=== PATIENT | female | born 1960 | race American Indian/Alaskan Native ===

== ENCOUNTER 2025-02-11 10:53 | Outpatient (AMB) | payer MEDICARE, MEDICAID, SELFPAY ==
--- NOTE | 2025-02-11 10:53 | A.OFFVIS_ITS ---
Intake Visit Reasons: chronic urinary retention Intake Note: New Patient is present for chronic urinary retention Urology Rx:none PVR:402 ml's Blood Thinners:apixaban Lumber Sticker Required: No Accompanied by: Self / Same As Patient Allergies fluoxetine (Prozac) Allergy (Unknown, Verified 02/11/25 11:37) Unknown oxcarbazepine (Trileptal) Allergy (Unknown, Verified 02/11/25 11:37) Unknown penicillin V Allergy (Unknown, Verified 02/11/25 11:37) Unknown Medication List - Last Reconciled 02/11/25 by SUJATHA Sen-PENNY acetaminophen ER 650 mg PO Q12H apixaban (Eliquis) 5 mg PO BID atorvastatin 10 mg PO DAILY dapagliflozin propanediol (Farxiga) 10 mg PO DAILY fluticasone furoate-vilanterol 100-25 mcg/dose inhalation metoprolol succinate ER mg PO olanzapine mg PO torsemide 20 mg PO DAILY trazodone mg PO HPI Comments Details: Josselyn is a very pleasant 64-year-old female patient of Dr. Rios. She has a past medical history of recurrent falls, GERD, fibromyalgia, diabetes, stage III severe COPD, constipation, chronic kidney disease stage 2, chronic low-back pain, chronic heart failure with reduced ejection fracture, carpal tunnel, AFib, and allergic rhinitis. She presents to the office today as a new patient for urinary retention/incomplete bladder emptying. In discussion with the patient today she reports a longstanding history of urinary issues however feels they are related to her diuretics. She reports at times when she is on increased amounts of her diuretic she feels she experiences issues with urinary incontinence. She does report utilizing 3-4 adult diapers per day as she finds it difficult to get to the bathroom on time. She discusses her recurrent falls due to her ongoing medical issues. She was unable to provide a urine for urinalysis today however PVR 402 mL. We did discussed potential causes of urinary retention/incomplete bladder emptying and further treatment options and risks and benefits of these treatment options. We also discussed the importance of timed/scheduled voiding to decrease episodes of urinary incontinence given decreased mobility. She denies hematuria, dysuria, foul smelling urine, changes to urinary stream, flank pain, fever, and or chills. She reports that although she experiences these episodes of urinary incontinence she does not feel they are bothersome to her. All questions were answered. She otherwise offers no other issues or concerns at this time. [facility] Medical History (Updated 02/11/25 @ 11:38 by XIAO Sen) History of falling GERD without esophagitis Fibromyalgia Fatigue DJD of shoulder Diabetes mellitus Stage 3 severe COPD by GOLD classification Constipation Chronic kidney disease (CKD), stage 2 Chronic respiratory failure with hypoxia and hypercapnia Chronic low back pain Chronic HFrEF (heart failure with reduced ejection fraction) Carpal tunnel syndrome, bilateral Atrial fibrillation Aortic aneurysm, thoracic Aneurysm of sinus of Valsalva Allergic rhinitis Review of Systems Eyes Reports no additional complaints ENT Reports as per HPI Card Reports as per HPI Resp Reports as per HPI GI Reports as per HPI Reports no additional complaints Musc Reports as per HPI Endo Reports as per HPI Duane/Lymph Reports no additional complaints Aller/Immun Reports as per HPI Physical Exam Const General: cooperative, comfortable, no acute distress, well developed, alert and awake Orientation/consciousness: patient oriented x3 Limitations: ambulation with walker HEENT Head: Yes normal to inspection, Yes normocephalic and Yes atraumatic Ears: hearing grossly normal bilaterally Eyes General: appearance normal, both eyes and all related structures Neck Neck: Yes normal visual inspection and Yes trachea midline Chest Chest palpation & inspection: normal inspection of the chest Resp Effort & Inspection: normal respiratory effort and able to speak in complete sentences Cardio Rate: regular rate GI Inspection: Yes normal to inspection General: Yes no CVA tenderness Back/Spine/Pelvis Back: no CVA tenderness Skin General skin exam: no rashes or lesions noted Neuro General: patient oriented x3 Extrem General: Yes normal to inspection Psych Appearance: grossly normal and well kempt Mental Status: mental status grossly normal Speech and movement: Normal speech and movement present and Clear speech present Affect: normal affect Attitude: cooperative Thought process: Normal thought process present Thought content: Normal thought content present Insight: Fair insight present (Psych) Judgement: Fair judgement present (Psych) Office Procedures Post Void Residual Post Residual Void Post Void Residual (PVR): 402 [id number] Void Residual by ultrasound Assessment & Plan Assessment & Plan (1) Incomplete bladder emptying: Code(s): R33.9 - Retention of urine, unspecified Category: Medical (2) Urinary retention: Code(s): R33.9 - Retention of urine, unspecified Category: Medical Plan Unable to obtain urine for urinalysis PVR 403 mL. We discussed sooner potential causes of urinary retention/incomplete bladder emptying; and further treatment options and risks and benefits of these treatment options. Start terazosin 1 mg at bedtime as discussed and prescribed Will obtain retroperitoneal ultrasound for further assessment evaluation. Prescriptions provided for incontinent pads as well as wipes as requested to Dada. Follow-up with nursing in 2 weeks for urinalysis and postvoid residual. We discussed the importance of timed/scheduled voiding as well as double voiding to assist with incomplete bladder emptying/urinary retention Follow-up with provider in 3 months with imaging to be completed prior and PVR at next office visit; or sooner with any issues, concerns, and or questions. Orders: Orders US retroperitoneal comp Today R33.9 - Retention of urine, unspecified AMB Urinalysis Automated Today Z13.9 - Encounter for screening, unspecified AMB Post Void Residual by ultrasound Today Z13.9 - Encounter for screening, unspecified Medications: New terazosin 1 mg PO BEDTIME 30 caps 3RF 30 days R39.12 - Poor urinary stream Patient Instructions: The patient had an opportunity to ask questions regarding the treatment plan. All questions were answered. Physical exam, labs, and imaging were discussed and reviewed in detail. As well as risks, benefits, and discussion of treatment choices. No major barriers to understanding were identified. The patient expressed understanding and agreement with the above treatment plan. The patient was made aware they should contact our office by phone for worsening of their current condition, the appearance of new symptoms, or with any questions or concerns. Compliance is encouraged with any medications and follow up testing that is ordered. It is a privilege to be allowed the opportunity to participate in? your urological care.? Again, if you have any questions or concerns If you have any questions or concerns please do not hesitate to contact me. The office is [phone]. This note is constructed using voice recognition software. While every effort has been made to ensure accuracy special education educational assistant errors may have been included. Yours sincerely, SUJATHA Sen-PENNY Coding Level of Care Code New Pt Level 4 (09394) Diagnoses Incomplete bladder emptying R33.9 Urinary retention R33.9 CPT Codes Post Residual Void - PVR CPT Code: 73231-Glhl Void Residual by ultrasound ([id number])
--- OUTSIDE RECORDS SUMMARY | 2025-02-11 11:42 | XMS_ITS | Encounter Summary ---
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 Role Phone Bessy Rios MD Primary Care Provider [phone] Encounter Details Date Type Department Care Team (Latest Contact Info) Description 08/14/2024 Lab Requisition [facility] [address] [place] [address] Mimi Carcamo MD [address] [place] [id number] Metabolic encephalopathy; Type 2 diabetes mellitus without complications (CMS/HCC V24, CMS/HCC V28) Social History Tobacco Use Types Packs/Day Years Used Date Smoking Tobacco: Former Cigarettes 0 08/16/1971 - 03/15/2008 Smokeless Tobacco: Never Alcohol Use Standard Drinks/Week Comments No 0 (1 standard drink = 0.6 oz pur e alcohol) Interpersonal Safety Answer Date Record ed Physical Abuse 06/26/2024 Verbal Abuse 06/26/2024 Comments Unknown Sex and Gender Information Value Date Recorded Sex Assigned at Female 06/26/2024 8:06 AM EST Legal Sex Female 11:15 AM EST Gender Identity Female 06/26/2024 8:06 AM EST Sexual Orientation Straight 06/26/2024 8: 06 AM EST documented as of this encounter Functional Status * Are you deaf or do you have serious difficulty hearing? Answer Date of Assessment Author No 06/24/2024 9:46 AM Jennifer Loomis RN * Are you blind or do you have serious difficulty seeing, even when wearing glasses? Answer Date of Assessment Author No 06/24/2024 9:46 AM Jennifer Loomis RN * Do you have serious difficulty walking or climbing stairs? Answer Date of Assessment Author No 06/24/2024 9:46 AM Jennifer Loomis RN * Do you have serious difficulty dressing or bathing? Answer Date of Assessment Author No 06/24/2024 9:46 AM Jennifer Loomis RN * Because of a physical, mental, or emotional condition, do you have serious difficulty doing errandsalone such as visiting the doctor? Answer Date of Assessment Author No 06/24/2024 9:46 AM Jennifer Loomis RN documented as of this encounter Mental Status * Because of a physical, mental, or emotional condition, do you have serious difficulty concentrating, remembering, or making decisions? (5 years old or older) Answer Entry Date Author No 06/24/2024 9:46 AM Jennifer Loomis RN documented in this encounter Plan of Treatment Not on file documented as of this encounter Procedures Procedure Name Priority Date/Time Associated Diagnosis Comments IRON AND TIBC Routine 08/16/2024 5:52 AM EST Metabolic encephalopathy Type 2 diabetes mellitus without complications (CMS/HCC) COMPLETE BLOOD COUNT Routine 08/16/2024 5:52 AM EST Metabolic encephalopathy Type 2 diabetes mellitus without complications (CMS/HCC) FERRITIN Routine 08/16/2024 5:52 AM EST Metabolic encephalopathy Type 2 diabetes mellitus without complications (CMS/HCC) VITAMIN B12 Routine 08/16/2024 5:52 AM EST Metabolic encephalopathy Type 2 diabetes mellitus without complications (CMS/HCC) BASIC METABOLIC PANEL Routine 08/16/2024 5:52 AM EST Metabolic encephalopathy Type 2 diabetes mellitus without complications (CMS/HCC) documented in this encounter Results * Ferritin (08/16/2024 5:52 AM EST) Ferritin 30 8 - 252 ng/mL LAB CHEMISTRY METHOD 08/17/2024 10:30 AM EST [facility] Blood Venous blood specimen / Unknown Venipuncture / Unknown 08/16/2024 5:52 AM EST 08/16/2024 10:09 AM EST us Mimi Carcamo MD LAB BLOOD ORDERABLES Final Resu lt [facility] [address] [place] [address], [place] [phone] * (ABNORMAL) Iron and TIBC (08/16/2024 5:52 AM EST) Iron 25(L) 40 - 150 mcg/dL LAB CHEMISTRY METHOD 08/17/2024 10:03 AM EST [facility] TIBC 322 250 - 450 mcg/dL LAB CHEMISTRY METHOD 08/17/2024 10:03 AM EST [facility] Iron Saturation 8(L) 15 - 50 % LAB CHEMISTRY METHOD 08/17/2024 10:03 AM EST [facility] Blood Venous blood specimen / Unknown Venipuncture / Unknown 08/16/2024 5:52 AM EST 08/16/2024 10:09 AM EST us Mimi Carcamo MD LAB BLOOD ORDERABLES Final Resu lt [facility] [address] [place] [address], [place] [phone] * Vitamin B12 (08/16/2024 5:52 AM EST) Vitamin B-12 334 250 - 900 pcg/mL LAB CHEMISTRY METHOD 08/17/2024 10:30 AM EST [facility] Blood Venous blood specimen / Unknown Venipuncture / Unknown 08/16/2024 5:52 AM EST 08/16/2024 10:09 AM EST us Mimi Carcamo MD LAB BLOOD ORDERABLES Final Resu lt [facility] [address] [place] [address], [place] [phone] * (ABNORMAL) Basic metabolic panel (08/16/2024 5:52 AM EST) Sodium 143 133 - 145 mmol/L LAB CHEMISTRY METHOD 08/16/2024 11:25 AM EST [facility] Potassium 3.8 3.5 - 5.5 mmol/L LAB CHEMISTRY METHOD 08/16/2024 11:25 AM [facility] Chloride 104 96 - 110 mmol/L LAB CHEMISTRY METHOD 08/16/2024 11:25 AM [facility] CO2 35(H) 21 - 32 mmol/L LAB CHEMISTRY METHOD 08/16/2024 11:25 AM [facility] Anion Gap 4 3 - 11 LAB CHEMISTRY METHOD 08/16/2024 11:25 AM [facility] Glucose 106(H) 70 - 100 mg/dL LAB CHEMISTRY METHOD 08/16/2024 11:25 AM [facility] BUN 12 5 - 25 mg/dL LAB CHEMISTRY METHOD 08/16/2024 11:25 AM [facility] Creatinine 0.83 0.50 - 1.10 mg/dL LAB CHEMISTRY METHOD 08/16/2024 11:25 AM [facility] eGFR 78 >=60 mL/min/1. 73m2 LAB CHEMISTRY METHOD 08/16/2024 11:25 AM [facility] Comment:Calculation based on the Chronic Kidney Disease Epidemiology Collaboration (CKD-EPI) equation refit without adjustment for race. BUN/Creatinine Ratio 14.5 LAB CHEMISTRY METHOD 08/16/2024 11:25 AM EST [facility] Calcium 8.7 8.5 - 10.5 mg/dL LAB CHEMISTRY METHOD 08/16/2024 11:25 AM [facility] Blood Venous blood specimen / Unknown Venipuncture / Unknown 08/16/2024 5:52 AM EST 08/16/2024 10:09 AM EST us Mimi Carcamo MD LAB BLOOD ORDERABLES Final Resu lt [facility] [address] [place] [address], [place] [phone] * (ABNORMAL) Complete blood count (08/16/2024 5:52 AM EST) WBC 6.6 4.8 - 10.8 K/mcL LAB HEMETOLOGY METHOD 08/16/2024 10:51 AM [facility] RBC 3.30(L) 3.80 - 4.80 M/mcL LAB HEMETOLOGY METHOD 08/16/2024 10:51 AM [facility] Hemoglobin 8.7(L) 11.5 - 16.0 g/dL LAB HEMETOLOGY METHOD 08/16/2024 10:51 AM [facility] Hematocrit 30.1(L) 35.0 - 47.0 % LAB HEMETOLOGY METHOD 08/16/2024 10:51 AM [facility] MCV 91.5 79.0 - 98.0 FL LAB HEMETOLOGY METHOD 08/16/2024 10:51 AM [facility] MCH 26.4(L) 27.0 - 32.0 pcg LAB HEMETOLOGY METHOD 08/16/2024 10:51 AM [facility] MCHC 28.9(L) 32.0 - 37.0 g/dL LAB HEMETOLOGY METHOD 08/16/2024 10:51 AM [facility] RDW 16.1(H) 11.0 - 15.0 % LAB HEMETOLOGY METHOD 08/16/2024 10:51 AM EST [facility] Platelets 206 130 - 400 K/mcL LAB HEMETOLOGY METHOD 08/16/2024 10:51 AM EST [facility] MPV 12.4(H) 7.0 - 11.0 FL LAB HEMETOLOGY METHOD 08/16/2024 10:51 AM EST [facility] NRBC 0.0 <1.0 % LAB HEMETOLOGY METHOD 08/16/2024 10:51 AM EST [facility] NRBC Absolute 0.00 <0.10 K/mcL LAB HEMETOLOGY METHOD 08/16/2024 10:51 AM [facility] Blood Venous blood specimen / Unknown Venipuncture / Unknown 08/16/2024 5:52 AM EST 08/16/2024 10:09 AM EST us Mimi Carcamo MD LAB BLOOD ORDERABLES Final Resu lt [facility] [address] [place] [address], documented in this encounter Visit Diagnoses Diagnosis Metabolic encephalopathy Type 2 diabetes mellitus without complications (CMS/HCC V24, CMS/HCC V28) documented in this encounter Additional Health Concerns Infection Onset Date Last Indicated Resolved Time ESBL 07/05/2024 10/05/2024 Respiratory Rule-Out 10/05/2024 10/05/2024 025 2:03 PM EST COVID-19 Rule-Out 10/05/2024 10/05/2024 10/05/2024 2:03 PM EST documented as of this encounter Care Teams [employer]worker Relationship Specialty Start Date End Date Bessy Rios MD [address] [place] [phone] PCP - General Internal Medicine 11/19/24 documented as of this encounter
== END 2025-02-11 11:21 | disposition home or self-care (01) ==
LOC: HO.HUSH 10:54
PROVIDERS: PCP Internal Medicine; Visit Provider Nurse Practitioner Family
DX: R33.9 Retention of urine, unspecified (principal)
CPT/HCPCS: 99204

== ENCOUNTER → 2025-02-11 10:53 | Outpatient (BNVA) | payer SELFPAY | PROVIDERS: PCP Internal Medicine; Visit Provider Nurse Practitioner Family | DX: R39.14 Feeling of incomplete bladder emptying (principal); R33.8 Other retention of urine | CPT/HCPCS: 51798; 99202 ==